=== PATIENT | female | born 1985 | race Caucasian/White ===

== ENCOUNTER 2017-02-11 20:45 | Emergency (ER) | payer OTHER | END 2017-02-11 23:15 | disposition home or self-care (01) | LOC: ER 20:45 | DX: S42.402A Unspecified fracture of lower end of left humerus, initial encounter for closed fracture (principal); S60.212A Contusion of left wrist, initial encounter; Z88.5 Allergy status to narcotic agent; W10.9XXA Fall (on) (from) unspecified stairs and steps, initial encounter; Y92.009 Unspecified place in unspecified non-institutional (private) residence as the place of occurrence of the external cause ==